=== PATIENT | female | born 1985 | race Hispanic/Latino ===

== ENCOUNTER 2017-03-25 15:56 | Emergency (ER) | payer OTHER ==
[2017-03-25 16:08] VITALS: BP 119/77; PULSE 108; RESP 22; TEMP 101.1; O2SAT 100
[2017-03-25] MEDS ORDERED: Sodium Chloride 0.9% 1,000 ML IV STA ×2 (17:02→18:43)
--- NOTE | 2017-03-25 17:10 | ED PDOC ---
HPI: Abdomen Time Seen by Provider: 03/25/17 17:08 Chief Complaint (Nursing): GI Problem Chief Complaint (Provider): vomiting/diarrhea History Per: Patient (31 y/o female here with vomiting/diarrhea since this morning. Patient has had multiple episodes of both since eating out. States she has had fever today and notes sore throat but believes this is related to food getting"stuck in throat." Patient has no h/o surgery on abdomen. States she has h/o IBS.) Past Medical History Reviewed: Historical Data, Nursing Documentation, Vital Signs Vital Signs: Last Vital Signs Temp 101.1 F H 03/25/17 20:25 Pulse 108 H 03/25/17 20:25 Resp 22 03/25/17 20:25 BP 119/77 03/25/17 20:25 Pulse Ox 100 03/26/17 23:57 - Family History Family History: States: No Known Family Hx - Home Medications Home Medications: Ambulatory Orders Medication Instructions Recorded Acetaminophen [Acetaminophen Extra 2 tab PO Q6 PRN #20 tablet 03/25/17 Strength] Famotidine [Pepcid] 20 mg PO BID #10 tab 03/25/17 Ondansetron ODT [Zofran ODT] 4 mg PO Q8 PRN #8 odt 03/25/17 - Allergies Allergies/Adverse Reactions: Allergies Allergy/AdvReac Type Severity Reaction Status Date / Time lactase [From Dairy Aid] Allergy RASH Verified 03/25/17 16:09 wheat Allergy RASH Verified 03/25/17 16:09 Review of Systems ROS Statement: Except As Marked, All Systems Reviewed And Found Negative Constitutional: Positive for: Fever Gastrointestinal: Positive for: Abdominal Pain Physical Exam - Reviewed Nursing Documentation Reviewed: Yes Vital Signs Reviewed: Yes - Physical Exam Appears: Positive for: Well, Non-toxic, No Acute Distress Head Exam: Positive for: ATRAUMATIC, NORMAL INSPECTION, NORMOCEPHALIC Skin: Positive for: Normal Color, Warm, DRY Eye Exam: Positive for: EOMI, Normal appearance, PERRL ENT: Positive for: Normal ENT Inspection Neck: Positive for: Normal, Painless ROM Cardiovascular/Chest: Positive for: Regular Rate, Rhythm Respiratory: Positive for: CNT, Normal Breath Sounds Gastrointestinal/Abdominal: Positive for: Normal Exam, Bowel Sounds, Soft, Tenderness (mild left lower quadrant tenderness) Back: Positive for: Normal Inspection Extremity: Positive for: Normal ROM Neurologic/Psych: Positive for: Alert, Oriented - Laboratory Results Result Diagrams: 03/25/17 17:35 03/25/17 17:35 Urine POC: Negative - ECG O2 Sat by Pulse Oximetry: 100 - Progress ED Course And Treament: ns 1 liter wide open pepcid 20mg iv zofran 4 mg iv x 1 dose tyelnol 975mg x 1 dose REPEAT EXAM: MINIMAL TENDERNESS NOTED LLQ. NO RLQ TENDERNESS. SOFT ABDOMEN NS 2ND LITER ORDERED Disposition - Clinical Impression Clinical Impression: Gastroenteritis - Patient ED Disposition Is Patient to be Admitted: No - Disposition Referrals: [facility] [Outside] Disposition: Routine/Home Disposition Time: 20:25 Condition: STABLE Prescriptions: Acetaminophen [Acetaminophen Extra Strength] 2 tab PO Q6 PRN #20 tablet PRN Reason: Fever >100.4 F Famotidine [Pepcid] 20 mg PO BID #10 tab Ondansetron ODT [Zofran ODT] 4 mg PO Q8 PRN #8 odt PRN Reason: Nausea/Vomiting Instructions: Gastroenteritis (DC) Forms: [employer] ED School/Work Excuse
[2017-03-25 17:51] LABS: BASO % 0.2 % (0.0-2.0); EOS % 0.1 % (0.0-4.0); HEMATOCRIT 40.5 % (34.0-47.0); LYMPH # 0.9 K/uL (1.0-4.3); LYMPH % 7.6 % (20.0-40.0); MEAN CELL VOLUME 87.8 fl (81.0-99.0); MEAN CORPUSCULAR HEMOGLOBIN 29.5 pg (27.0-31.0); MEAN CORPUSCULAR HGB CONC 33.6 g/dL (33.0-37.0); MONO # 0.6 K/uL (0.0-0.8); MONO % 5.1 % (0.0-10.0); NEUT # 10.1 K/uL (1.8-7.0); PLATELET COUNT 229 K/uL (130-400); RED CELL DISTRIBUTION WIDTH 13.2 % (11.5-14.5); WHITE BLOOD COUNT 11.6 K/uL (4.8-10.8)
[2017-03-25 17:59] LABS: ALB/GLOB RATIO 1.4 (1.0-2.1); ALKALINE PHOSPHATASE 62 U/L (38-126); ALT/SGPT 29 U/L (9-52); AST/SGOT 28 U/L (14-36); BILIRUBIN,TOTAL 0.5 mg/dl (0.2-1.3); BLOOD UREA NITROGEN 4 mg/dl (7-17); CALCIUM 9.3 mg/dL (8.4-10.2); CARBON DIOXIDE 23 mmol/L (22-30); CHLORIDE 104 mmol/L (98-107); GFR AFRICAN-AMERICAN > 60; GLUCOSE,RANDOM 96 mg/dL (65-105); LIPASE 56 U/L (23-300); POTASSIUM 3.4 MMOL/L (3.6-5.0); SODIUM 139 mmol/l (132-148); TOTAL PROTEIN 7.9 G/DL (6.3-8.2)
[2017-03-25 18:36] LABS: TOTAL CELLS COUNTED 100
[2017-03-25 18:37] LABS: NEUTROPHIL 89 % (42-75)
== END 2017-03-25 20:25 | disposition home or self-care (01) ==
LOC: H.ER 15:56
DX: K52.9 Noninfective gastroenteritis and colitis, unspecified (principal); R19.7 Diarrhea, unspecified; R50.9 Fever, unspecified; J20.9 Acute bronchitis, unspecified